=== PATIENT | male | born 1970 | race Two or more races ===

== ENCOUNTER 2018-03-25 05:48 | Day surgery (SDC) | payer OTHER ==
[2018-03-25] MEDS ORDERED: FENTANYL PF 100MCG/2ML AMPUL ONE (07:57)
[2018-03-25] MEDS ORDERED: LIDOCAINE HCL/PF 1% 30 ML SDV ONE (08:06)
[2018-03-25] MEDS ORDERED: methylPREDNISolone ACETATE 80 MG/ML VIAL ONE (08:18)
== END 2018-03-25 10:00 | disposition home or self-care (01) ==
LOC: DS 05:48
PROVIDERS: ATTEND Specialist
DX: S83.242A Other tear of medial meniscus, current injury, left knee, initial encounter (principal); S83.282A Other tear of lateral meniscus, current injury, left knee, initial encounter; M94.262 Chondromalacia, left knee; X58.XXXA Exposure to other specified factors, initial encounter; Y93.89 Activity, other specified; Y92.89 Other specified places as the place of occurrence of the external cause; Y99.8 Other external cause status; I10 Essential (primary) hypertension; E11.9 Type 2 diabetes mellitus without complications; E78.5 Hyperlipidemia, unspecified; E66.01 Morbid (severe) obesity due to excess calories
CPT/HCPCS: 82962-TC; 88304-TC; 88305-TC; 88311-TC; A4217; A6253; J0690; J1040; J3010; J3490; Z7610